=== PATIENT | male | born 1960 | race Caucasian/White ===

== ENCOUNTER → 2021-06-18 | Day surgery (SDC) | payer MEDICARE, OTHER ==
[~2021-06-18] MED LIST: AMLODIPINE BESY10 MG PO; ATORVASTATIN CA80 MG PO; BACLOFEN20 MG PO; BIOFREEZE89 ML TP; CARVEDILOL25 MG PO; ECOTRIN81 MG PO; ENULOSE10 GM/15 M PO; GUAIFENESI100 MG/5 M PO; HYDRALAZINE HCL25 MG PO; HYDROCODONE-AC1 EACH PO; MIRALAX17 GM PO; NEURONTIN300 MG PO; PEPCID AC20 MG PO; THERA-M CAPLET1 EACH PO; TRAZODONE HCL50 MG PO; ZOLOFT100 MG PO
== END | disposition home or self-care (01) ==
LOC: OR 06:51
DX: K57.30 Diverticulosis of large intestine without perforation or abscess without bleeding (principal); K64.1 Second degree hemorrhoids; E11.9 Type 2 diabetes mellitus without complications; I11.9 Hypertensive heart disease without heart failure; J44.9 Chronic obstructive pulmonary disease, unspecified; F32.9 Major depressive disorder, single episode, unspecified; F17.210 Nicotine dependence, cigarettes, uncomplicated; Z79.82 Long term (current) use of aspirin; Z79.899 Other long term (current) drug therapy; Z20.822 Contact with and (suspected) exposure to COVID-19; Z86.73 Personal history of transient ischemic attack (TIA), and cerebral infarction without residual deficits
CPT/HCPCS: J2250; J2704; J7040; U0002